=== PATIENT | male | born 1980 | race Two or more races ===

== ENCOUNTER 2019-09-03 16:17 | Emergency (ER) | payer OTHER ==
[2019-09-03] MEDS ORDERED: IV NORMAL SALINE 1,000ML 1,000 ML IV SCH (16:41)
--- NOTE | 2019-09-03 16:45 | PHYS DOC ---
Past History Past Medical History: No Pertinent History Smoking: Cigarettes Alcohol Use: Heavy Adult General Chief Complaint Chief Complaint: MULTIPLE COMPLAINTS HPI HPI Patient is a 39-year-old male who presents to the emergency department for evaluation. He states for the past 3 days, he has had nausea, and several episodes of diarrhea. He had 4 episodes of diarrhea today, all of which have been nonbloody. He denies any real abdominal pain other than nausea. He states that at some point during the day today, he had an episode of palpitations, where he felt like he was having a panic attack, but his symptoms seemed to have subsided. He states he felt tremulous during the episode. He was experiencing palpitations during the episode as well, but that is resolved at this time. He admits to drinking heavily, half a fifth of hard liquor daily, but states he has been cutting down recently. He denies any recent travel or antibiotic use. He was seen at the urgent care yesterday and given a shot of an unknown medication for his stomach, and a prescription for Zofran. There are no alleviating or exacerbating factors to his symptoms otherwise. Review of Systems Review of Systems Constitutional: Denies fever or chills [] Eyes: Denies change in visual acuity, redness, or eye pain [] HENT: Denies nasal congestion or sore throat [] Respiratory: Denies cough or shortness of breath [] Cardiovascular: The patient denies any shortness of breath, chest pain, palpitations, or orthopnea [] GI: No additional information not addressed in HPI [] : Denies dysuria or hematuria [] Musculoskeletal: Denies back pain or joint pain [] Integument: Denies rash or skin lesions [] Neurologic: Denies headache, focal weakness or sensory changes [] Endocrine: Denies polyuria or polydipsia [] All other systems were reviewed and found to be within normal limits, except as documented in this note. Allergies Allergies Allergies Coded Allergies Type Severity Reaction Last Updated Verified No Known Drug Allergies 09/03/19 No Physical Exam Physical Exam PHYSICAL EXAM: CONSTITUTIONAL: Well developed, well nourished HEAD: normocephalic, atraumatic EENT: PERRL, EOMI. Conjunctivae normal color, sclerae non-icteric; moist mucous membranes. There is no nystagmus noted. NECK: Supple, non-tender; no meningismus. LUNGS: Lungs CTA, breathing even and unlabored. Normal air movement. HEART: Regular tachycardia, no murmur CHEST: No deformity; non-tender ABDOMEN: The abdomen is soft, there is mild epigastric tenderness to palpation, the remainder the abdomen is soft and non-tender, no masses or bruits. EXTREM: Normal ROM; no deformity, no calf tenderness. Normal pulses palpable in all extremities. There is no pedal edema. SKIN: No rash; no diaphoresis NEURO: Alert; normal speech and cognition; CN's grossly intact; strength grossly intact without focal deficit. BACK: No CVA TTP. PSYCHIATRIC: The patient exhibits a moderately anxious affect. Current Patient Data Vital Signs Vital Signs Date Time Temp Pulse Resp B/P (MAP) Pulse Ox O2 Delivery O2 Flow Rate FiO2 09/03/19 16:17 98.4 119 22 152/106 (121) 99 Room Air Lab Results Laboratory Tests Test 09/03/19 16:48 White Blood Count 9.0 x10^3/uL Red Blood Count 4.60 x10^6/uL Hemoglobin 15.6 g/dL Hematocrit 46.4 % Mean Corpuscular Volume 101 fL Mean Corpuscular Hemoglobin 34 pg Mean Corpuscular Hemoglobin Concent 34 g/dL Red Cell Distribution Width 13.9 % Platelet Count 230 x10^3/uL Neutrophils (%) (Auto) 71 % Lymphocytes (%) (Auto) 16 % Monocytes (%) (Auto) 12 % Eosinophils (%) (Auto) 0 % Basophils (%) (Auto) 1 % Neutrophils # (Auto) 6.4 x10^3uL Lymphocytes # (Auto) 1.4 x10^3/uL Monocytes # (Auto) 1.1 x10^3/uL Eosinophils # (Auto) 0.0 x10^3/uL Basophils # (Auto) 0.0 x10^3/uL Prothrombin Time 10.2 SEC Prothromb Time International Ratio 1.0 Sodium Level 136 mmol/L Potassium Level 3.7 mmol/L Chloride Level 95 mmol/L Carbon Dioxide Level 24 mmol/L Anion Gap 17 Blood Urea Nitrogen 8 mg/dL Creatinine 0.9 mg/dL Estimated GFR (Cockcroft-Gault) 95.0 BUN/Creatinine Ratio 9 Glucose Level 171 mg/dL Calcium Level 9.4 mg/dL Magnesium Level 1.4 mg/dL Total Bilirubin 0.5 mg/dL Aspartate Amino Transf (AST/SGOT) 270 U/L Alanine Aminotransferase (ALT/SGPT) 261 U/L Alkaline Phosphatase 83 U/L Total Protein 8.4 g/dL Albumin 4.3 g/dL Albumin/Globulin Ratio 1.0 Lipase 245 U/L Ethyl Alcohol Level 49 mg/dL Current Medications Medications (Trade) Dose Ordered Sig/Geri Route PRN Reason Start Time Stop Time Status Last Admin Dose Admin Lorazepam (Ativan Inj) 1 mg 1X ONCE IV 09/03/19 17:00 09/03/19 17:01 DC 09/03/19 17:05 Sodium Chloride 1,000 ml @ 1,000 mls/hr Q1H IV 09/03/19 16:41 09/03/19 17:40 DC 09/03/19 17:05 Ondansetron HCl (Zofran) 4 mg 1X ONCE IVP 09/03/19 17:00 09/03/19 17:01 DC 09/03/19 17:05 Magnesium Sulfate 50 ml @ 25 mls/hr 1X ONCE IV 09/03/19 17:45 09/03/19 19:44 09/03/19 17:56 Sodium Chloride 1,000 ml @ 1,000 mls/hr 1X ONCE IV 09/03/19 17:45 09/03/19 18:44 09/03/19 17:56 EKG EKG Normal sinus rhythm at a rate of 117 beats for minute, normal axis, normal intervals, nonspecific ST/T changes without acute ischemic changes noted.[] Radiology/Procedures Radiology/Procedures [] Course & Med Decision Making Course & Med Decision Making Pertinent Lab Imaging studies reviewed. (See chart for details) [] 6:00 PM: The patient's condition remained stable, he is feeling somewhat better after IV hydration. He'll be given a second liter of IV fluids, magnesium replacement and a second milligram of Ativan. I do suspect that his symptoms are related to alcohol withdrawal. He has never had an alcohol withdrawal seizure. I did discuss the importance of getting help with his alcoholism, and I discussed importance of close follow-up and return precautions, as well as the dangers of abrupt cessation of alcohol. I recommended he either see his primary care provider or a treatment facility where he can get on a Librium taper instead of trying to taper his alcohol at home as he is desirous to do. Alf Disclaimer Dragon Disclaimer This electronic medical record was generated, in whole or in part, using a voice recognition dictation system. Departure Departure: Impression: Primary Impression: Anxiety Additional Impression: Alcohol withdrawal Disposition: 01 HOME, SELF-CARE Condition: STABLE Referrals: QUINTEN MAC MD (PCP) Patient Instructions: Alcohol Problems, Alcohol Septal Ablation, Anxiety and Panic Attacks Problem Qualifiers CHAN UNDERWOOD MD Sep 03, 2019 16:45
[2019-09-03] MEDS ORDERED: ONDANSETRON PF 4 MG/2 ML VIAL. IVP ONE (17:00)
[2019-09-03 17:01] LABS: BASO % 1 % (0-3); EOS % 0 % (0-3); HEMATOCRIT 46.4 % (39.0-53.0); HEMOGLOBIN 15.6 g/dL (13.0-17.5); LYMPH # 1.4 x10^3/uL (1.0-4.8); LYMPH % 16 % (24-48); MEAN CORPUSCULAR HEMOGLOBIN 34 pg (25-35); MEAN CORPUSCULAR HGB CONC 34 g/dL (31-37); MEAN CORPUSCULAR VOLUME 101 fL (79-100); MONO # 1.1 x10^3/uL (0.0-1.1); MONO % 12 % (0-9); NEUT # 6.4 x10^3uL (1.8-7.7); NEUT % 71 % (31-73); PLATELET COUNT 230 x10^3/uL (140-400); RED CELL DISTRIBUTION WIDTH 13.9 % (11.5-14.5)
[2019-09-03 17:15] LABS: ALBUMIN 4.3 g/dL (3.4-5.0); CALCIUM 9.4 mg/dL (8.5-10.1); CREATININE 0.9 mg/dL (0.7-1.3); MAGNESIUM 1.4 mg/dL (1.8-2.4); POTASSIUM 3.7 mmol/L (3.5-5.1); TOTAL BILIRUBIN 0.5 mg/dL (0.2-1.0); TOTAL PROTEIN 8.4 g/dL (6.4-8.2)
[2019-09-03] MEDS ORDERED: IV NORMAL SALINE 1,000ML 1,000 ML IV ONE (17:45)
[2019-09-03] MEDS ORDERED: MAGNESIUM SULFATE 2GM 50 ML IV ONE (17:45)
[2019-09-03 20:30] VITALS: BP 143/92
--- NOTE | 2019-09-06 08:12 | EKG ---
[address] [id number] Test Date: 2019-09-03 Test Time: 16:52:21 Pat Name: MAX LÓPEZ Department: Room: Gender: M [employer]: : 1980 Requested By: CHAN UNDERWOOD Order Number: [id number] Reading MD: Measurements Intervals [place] Rate: 117 P: -44 VT: 154 QRS: 26 QRSD: 78 T: 53 QT: 310 QTc: 437 Interpretive Statements SINUS TACHYCARDIA INCOMPLETE RIGHT BUNDLE BRANCH BLOCK NO SPECIFIC ECG ABNORMALITIES RI6.01 No previous ECG available for comparison
== END 2019-09-03 20:30 | disposition home or self-care (01) ==
LOC: ER 16:17
DX: F41.9 Anxiety disorder, unspecified (principal); F10.239 Alcohol dependence with withdrawal, unspecified; F17.210 Nicotine dependence, cigarettes, uncomplicated; R19.7 Diarrhea, unspecified; Y90.2 Blood alcohol level of 40-59 mg/100 ml
CPT/HCPCS: 36415; 80053; 83690; 83735; 85025; 85610; 93005; 96361; 96365; 96366; 96375; 96376; 99285; G0480; J2060; J2405; J3475; J7030